=== PATIENT | female | born 1945 ===

== ENCOUNTER → 2017-10-10 07:38 | Outpatient (CLI) | payer OTHER ==
[~2017-10-10 07:38] MED LIST: BACLOFEN10 MG PO; FLECTOR30 EA TP; KETO10TA2 PO; TRAMADOL HCL-AP1 TAB PO
== END | disposition home or self-care (01) ==
LOC: LAB 07:38
DX: I11.9 Hypertensive heart disease without heart failure (principal); E11.9 Type 2 diabetes mellitus without complications; E78.2 Mixed hyperlipidemia; E03.8 Other specified hypothyroidism; N39.0 Urinary tract infection, site not specified; R82.79 Other abnormal findings on microbiological examination of urine

== ENCOUNTER 2017-11-29 10:52 | Outpatient (CLI) | payer OTHER | END 2017-11-29 16:07 | disposition home or self-care (01) | LOC: RAD 10:52 | DX: J43.2 Centrilobular emphysema (principal); R22.2 Localized swelling, mass and lump, trunk; J47.9 Bronchiectasis, uncomplicated; J15.9 Unspecified bacterial pneumonia ==

== ENCOUNTER 2021-12-21 11:45 | Outpatient (CLI) | payer OTHER | END 2021-12-21 12:24 | disposition home or self-care (01) | LOC: TOM 11:45 | PROVIDERS: ATTEND Internal Medicine Pulmonary Disease | DX: J43.2 Centrilobular emphysema (principal); J47.9 Bronchiectasis, uncomplicated; R22.2 Localized swelling, mass and lump, trunk; R04.2 Hemoptysis ==